=== PATIENT | female | born 1990 | race Caucasian/White ===

== ENCOUNTER 2016-03-24 17:07 | Emergency (ER) ==
[2016-03-24 17:51] VITALS: BP 125/75
--- NOTE | 2016-03-24 18:05 | PROVIDER DOCUMENTATION ---
HPI-General Adult <Lanny Lopez Krista - Last Filed: 03/24/16 20:33> - General Source: patient - History of Present Illness -Gen Adult Nature of Presenting Problems: 26 year old F presents to the ED with a cc of cough and congestion x1 week. Pt states that she has had a fever at the beginning but has since resolve. PT is but does not know how far along. Location of Pain/Injury: reports: none Pain Radiation: reports: no radiation Quality of Pain: reports: none Severity: reports: mild Onset/Duration: reports: 1 week ago Timing: reports: still present Modifying Factors: improves with: nothing Associated Symptoms: reports: cough, sinus congestion/drainage Similar Symptoms Previously?: No Recently seen or treated by another doctor?: No <Ngoc Strong - Last Filed: 03/24/16 20:43> - General Chief Complaint: Cold Symptoms Stated Complaint: COLD SX/?? WEEKS PREG Time Seen by Provider: 03/24/16 18:00 Allergies/Adverse Reactions: Patient Allergies Allergy/AdvReac Type Severity Reaction Status Date / Time No Known Allergies Allergy Verified 03/24/16 17:51 Review of Systems - Adult - REVIEW OF SYSTEMS - ADULT Constitutional: denies: chills, fever Eyes: reports: no symptoms reported Ears, Nose, Mouth & Throat: reports: sinus problem. denies: ear pain, throat pain Cardiovascular: denies: chest pain, palpitations Respiratory: reports: cough. denies: shortness of breath Gastrointestinal: denies: abdominal pain, nausea, vomiting Genitourinary: reports: no symptoms reported Musculoskeletal: reports: no symptoms reported Integumentary: reports: no symptoms reported Neurological: reports: no symptoms reported Psychiatric: reports: no symptoms reported Endocrine: reports: no symptoms reported Hematologic/Lymphatic: reports: no symptoms reported Allergic/Immunologic: reports: no symptoms reported All Other Systems: Reviewed and Negative <Ngoc Strong - Last Filed: 03/24/16 20:43> Past History - Adult - PAST MEDICAL HISTORY-ADULT Review of Records: reports: Nursing Assessment Review, Medications Reviewed Major Childhood Illnesses: reports: denies history Other Conditions: reports: denies history - PRIOR SURGERIES/PROCEDURES Surgical/Procedure History: reports: none - IMMUNIZATION STATUS Childhood Immunizations: See Nurse Assessment Flu Vaccine: See Nurse Assessment - SOCIAL HISTORY Smoking: non-smoker Substance Use: none/never Alcohol Use Frequency: never <Ngoc Strong - Last Filed: 03/24/16 20:43> Physical Exam-General - PHYSICAL EXAM-ADULT Initial Vital Signs Reviewed: Yes - CONSTITUTIONAL General Appearance: appears well, alert, no apparent distress - EYES Eyes: PERRL/EOMI, pink conjunctivae - HEAD, EARS, NOSE, MOUTH & THROAT HENMT: normocephalic/atraumatic, moist mucous membranes, TMs normal, pharyngeal erythema (with post-nasal drainage). negative: angioedema - NECK Neck: non-tender, full range of motion, supple. negative: lymphadenopathy - RESPIRATORY Respiratory: chest non-tender, lungs clear, normal breath sounds - CARDIOVASCULAR Cardiovascular: regular rate, rhythm, no edema - GASTROINTESTINAL (ABDOMEN) Abdominal Exam: non tender, other (fundus palpated above umbilicus) - MUSCULOSKELETAL Back Exam: normal inspection, no CVA tenderness, no vertebral tenderness Extremity: normal gait, normal inspection - SKIN Integumentary: normal color, normal turgor, warm/dry - NEUROLOGIC Neurologic: grossly normal, no motor/sensory deficits - PSYCHIATRIC Psych/Mental Status: normal thought content, normal thought process <Lanny Lopez - Last Filed: 03/24/16 20:33> - PHYSICAL EXAM-ADULT Initial Vital Signs Reviewed: Yes - CONSTITUTIONAL General Appearance: appears well, alert, no apparent distress - RESPIRATORY Respiratory: chest non-tender, lungs clear, normal breath sounds - CARDIOVASCULAR Cardiovascular: normal peripheral pulses, regular rate, rhythm, no edema - GASTROINTESTINAL (ABDOMEN) Abdominal Exam: non tender, soft - MUSCULOSKELETAL Extremity: normal inspection - SKIN Integumentary: normal color, normal turgor, warm/dry - PSYCHIATRIC Psych/Mental Status: normal mood/affect, normal thought content, normal thought process, oriented x 3 <Ngoc Strong - Last Filed: 03/24/16 20:43> Progress - PLAN OF CARE/RESULTS Progress/Plan/Lab Results: Vital Signs Temp Pulse Resp BP Pulse Ox 03/24/16 17:49 97.6 F 101 H 18 125/75 96 No Known Allergies Allergy (Verified 03/24/16 17:51) No Home Medications 03/24/16 Orders Category Date Time Status Heart Tones NOW Care 03/24/16 17:55 Active On recommendation of OB nurse ordered OB US as pt has had no OB care for this . Estimates about 20 wk . Has abdominal pain, could be due to coughing but will further evaluate cause of abd pain. <Lanny Lopez - Last Filed: 03/24/16 20:33> - PLAN OF CARE/RESULTS Progress/Plan/Lab Results: plan of care: heart tones Orders Category Date Time Status Heart Tones NOW Care 03/24/16 17:55 Active Vital Signs - 24 hr 03/24/16 17:49 Temperature 97.6 F Pulse Rate 101 H Respiratory 18 Rate Blood Pressure 125/75 O2 Sat by Pulse 96 Oximetry Pt given results and will be d/c home w/ rx to follow up with PCP. Pt verbally understood instructions. PT remained clinically stable throughout the course of the ED stay and will return if symptoms worsen. - ULTRASOUND (By Radiology) 1 US Study: Transvaginal Impression: Normal (FHR: 153 bpm, BPM: 18 weeks 0 days, EDVIN: August 25, 2016. Live IUP, Cervix closed. No complications identified.) <Ngoc Strong - Last Filed: 03/24/16 20:43> Departure - Departure Time of Disposition Order: 18:26 Certified Medical Emergency: Emergent <Lanny Lopez - Last Filed: 03/24/16 20:33> <Ngoc Strong - Last Filed: 03/24/16 20:43> - Departure DIAGNOSIS: Upper respiratory infection Qualifiers: URI type: unspecified URI Qualified Code(s): J06.9 - Acute upper respiratory infection, unspecified Disposition: HOME 01 Condition: Good Additional Instructions: Follow up with primary care doctor. Return to ED for any new or worsening symptoms. Establish care with a primary physician by calling the physician referral line below ED Follow Up Instructions: You have been treated by a care provider in the Emergency Department. These instructions are being provided to you so you can have an understanding of how to care for yourself upon discharge. Upon discharge from the Emergency Department, you are responsible for making arrangements for follow-up care by a physician of your choice. Take all prescribed medications as directed. Return to the Emergency Department immediately for any new or worsening symptoms. You may call the Physician Referral phone number at [phone] to obtain a list of Physicians who are taking new patients. Prescriptions: Amoxicillin 500 mg PO TID #21 tablet Guaifenesin/Dextromethorphan [Guaifenesin Dm Syrup] 10 ml PO BID #120 ml Referrals: None,PCP [Primary Care Provider] - Forms: Return to School/Parent Work Instructions: Amoxicillin capsules or tablets, Upper Respiratory Infection, Adult, Dextromethorphan; Guaifenesin oral solution Attestation - Physician/ Mid-level Attestation Patient care was provided by Mid-level provider (DURABLE MEDICAL EQUIPMENT TECHNICIAN/PA):: Yes Mid-level provider:: Lanny Lopez Mid-level documentation review:: The Mid-level provider documentation, treatment plan and medical decision making was reviewed by the physician who agrees with all treatment and medical decision making by the [facility]. <Lanny Lopez - Last Filed: 03/24/16 20:33> - Scribe Verification/Attestation Scribe:: Ngoc Strong Acting as Scribe for:: Lanny Lopez Scribe documention review:: This chart was documented by a scribe and accurately reflects the service the provider performed and the decisions made by the provider. <Ngoc Strong - Last Filed: 03/24/16 20:43> Physician Attestation - Physician Attestation I, the provider, attest to the following statement:: Lanny Lopez Physician documentation Attestation:: This documentation recorded by the scribe accurately reflects the service I personally performed and the decisions made by me. <Ngoc Strong - Last Filed: 03/24/16 20:43>
--- NOTE | 2016-03-25 08:58 | Diag Imaging Result Document ---
PROCEDURE NAME: US OBS COMPLETE > 14 WKS - 03/24/2016 OBSTETRICAL ULTRASOUND GREATER THAN 14 WEEKS: INDICATION: Abdominal pain. No care. Spotting. Preliminary interpretation was given by the on-call radiologist. FINDINGS: A single viable intrauterine is identified, with a heart rate of 153 beats per minute, maternal age of 18 weeks 0 days, and an estimated due date of August 25, 2016. The cervix is closed. Presentation is breech. Placenta is posterior. Four-chamber heart, three- vessel cord, bladder, kidneys, stomach, and spine are noted and unremarkable. IMPRESSION: Single viable intrauterine with an estimated gestational age of 18 weeks 0 days. No complications are appreciated.
== END 2016-03-24 20:51 | disposition home or self-care (01) ==
LOC: P.ED 17:07
DX: O26.892 Other specified pregnancy related conditions, second trimester (principal); J06.9 Acute upper respiratory infection, unspecified; R05 Cough; R09.81 Nasal congestion; R10.9 Unspecified abdominal pain; Z3A.18 18 weeks gestation of pregnancy
CPT/HCPCS: 76805

== ENCOUNTER 2016-08-18 05:38 | Inpatient (IN) ==
[2016-08-18] MEDS ORDERED: KEFZOL 1 GM/D5W 1 GM/50 ML IVPB IV PRN (05:44)
[2016-08-18] MEDS: LR 1,000 ML IV SCH ×2 (06:10→07:40)
[2016-08-18] MEDS ORDERED: SODIUM CHLORIDE 0.9% INJ ONE (06:15)
[2016-08-18] MEDS ORDERED: PEPCID IV ONE (06:15)
[2016-08-18] MEDS ORDERED: BICITRA PO ONE (06:15)
[2016-08-18 06:36] LABS: MANUAL DIFF NEEDED? NO
[2016-08-18 06:38] LABS: BASO% 0.3 % (0.0-0.8); EOS# 0.12 X1000 (0.0-0.7); EOS% 0.8 % (0.0-10.0); HEMATOCRIT 31.3 % (37.0-47.0); IMM GRAN# 0.05 X1000 (0.0-0.04); IMM GRAN% 0.3 % (0.0-0.5); LYMPH# 2.83 X1000 (1.2-3.4); LYMPH% 19.6 % (20.5-51.1); MCH 25.8 PG (27-31); MCHC 31.9 g/dL (33-37); MCV 80.9 FL (81-99); MONO# 1.18 X1000 (0.11-0.59); MONO% 8.2 % (1.7-9.3); MPV 11.4 FL (7.4-10.4); NEUT% 70.8 % (42.2-75.2); PLT 321 X1000 (130-400); RBC 3.87 XMIL (4.2-5.4)
[2016-08-18] MEDS ORDERED: ROBINUL ONE (07:36)
[2016-08-18] MEDS ORDERED: PITOCIN ONE (07:36)
[2016-08-18] MEDS ORDERED: ZOFRAN ONE (07:36)
[2016-08-18] MEDS ORDERED: TORADOL ONE (07:36)
[2016-08-18] MEDS ORDERED: DURAMORPH ONE (07:37)
[2016-08-18] MEDS ORDERED: EPHEDRINE ONE (07:37)
[2016-08-18 08:03] LABS: URINE SOURCE VOIDED
--- NOTE | 2016-08-18 08:09 | HISTORY AND PHYSICAL ---
PREDELIVERY DIAGNOSES: 1. Intrauterine at term. 2. Previous delivery, for repeat. 3. Late care. 4. Undesired fertility. 5. GBS negative. HISTORY OF PRESENT ILLNESS: Ms. Lewis is a 33-year-old, 2, para 1, with an estimated date of delivery of 08/25/2016 and the above diagnoses, who presents this morning for a repeat delivery and tubal ligation. She states she is feeling well. She has denied contractions, vaginal bleeding, leaking of fluid, headaches, visual changes, chest pain, or shortness of breath. She states she has good movement. PAST MEDICAL HISTORY: Negative. PAST SURGICAL HISTORY: Tonsillectomy and a delivery for failure to progress. ALLERGIES: She has no known drug allergies. MEDICATIONS: vitamins, iron, and Zofran. FAMILY HISTORY: Noncontributory. SOCIAL HISTORY: She denies tobacco, alcohol, or drug use. PHYSICAL EXAMINATION: VITAL SIGNS: Vital signs are stable. She is afebrile. GENERAL: She is alert and cooperative, no distress. NECK: Supple. LUNGS: Clear. HEART: Regular sinus rhythm. ABDOMEN: Gravid. PELVIC: Examination deferred. EXTREMITIES: There is +2 lower extremity edema. LABORATORY VALUES: Hepatitis B negative. Rubella immune. Rh positive blood type. HIV negative. RPR nonreactive. She passed her 1 hour oral glucose tolerance test. ASSESSMENT: As above. PLAN: Repeat delivery with tubal ligation. cc: Rex Del Rio MD
[2016-08-18 08:10] LABS: BILIRUBIN URINE NEGATIVE (NEGATIVE); BLOOD URINE NEGATIVE (NEGATIVE); CLARITY CLEAR (CLEAR); COLOR YELLOW; GLUCOSE URINE NEGATIVE (NEGATIVE); LEUKOCYTES URINE 2+ (NEGATIVE); NITRITE URINE NEGATIVE (NEGATIVE); PH URINE 6.5; PROTEIN URINE TRACE mg/dL (NEGATIVE); SP GRAVITY URINE 1.015; UROBILINOGEN URINE NORMAL
[2016-08-18 08:15] LABS: UR AMPHETAMINES QUAL NONE DETECTED (NONE DETECT); UR BARBITUATES QUAL NONE DETECTED (NONE DETECT); UR BENZODIAZEPIN QUAL NONE DETECTED (NONE DETECT); UR CANNABINOIDS QUAL NONE DETECTED (NONE DETECT); UR COCAINE QUAL NONE DETECTED (NONE DETECT); UR MDMA QUAL NONE DETECTED (NONE DETECT); UR METHADONE QUAL NONE DETECTED (NONE DETECT); UR METHAMPHETAMINE QUAL NONE DETECTED (NONE DETECT); UR OPIATES QUAL NONE DETECTED (NONE DETECT); UR OXYCODONE QUAL NONE DETECTED (NONE DETECT); UR PCP QUAL NONE DETECTED (NONE DETECT); UR TCA QUAL NONE DETECTED (NONE DETECT)
[2016-08-18] MEDS ORDERED: VERSED ONE (08:58)
[2016-08-18] MEDS ORDERED: PITOCIN 20 UNITS/LR 20 UNITS/1,000 ML IV.SOLN ONE (09:07)
[2016-08-18] MEDS ORDERED: NEO-SYNEPHRINE ONE (09:07)
[2016-08-18] MEDS ORDERED: ZOFRAN IV PRN ×4 (10:01→15:58)
[2016-08-18] MEDS ORDERED: ZOFRAN ODT PO PRN ×2 (10:01→15:57)
[2016-08-18] MEDS ORDERED: BENADRYL IV PRN ×2 (10:01→15:58)
[2016-08-18] MEDS ORDERED: NARCAN INJ PRN ×2 (10:01→15:57)
[2016-08-18] MEDS: MORPHINE IV PRN ×4 (10:17→20:13)
[2016-08-18] MEDS ORDERED: DULCOLAX PR PRN (11:37)
[2016-08-18] MEDS ORDERED: MYLICON PO PRN (11:37)
[2016-08-18] MEDS ORDERED: PERCOCET-5 PO PRN (11:37)
[2016-08-18] MEDS ORDERED: BOOSTRIX VACCINE IM ONE (11:37)
[2016-08-18] MEDS ORDERED: PITOCIN IM PRN (11:37)
[2016-08-18] MEDS ORDERED: M-M-R II VACCINE SUBQ ONE (11:37)
[2016-08-18] MEDS ORDERED: HYDROXYZINE IM PRN (11:37)
[2016-08-18] MEDS ORDERED: AMBIEN PO PRN (11:37)
[2016-08-18] MEDS ORDERED: CYTOTEC PO PRN (11:37)
[2016-08-18] MEDS ORDERED: DEMEROL PO PRN ×2 (11:37)
[2016-08-18] MEDS ORDERED: HYDROXYZINE PO PRN (11:37)
[2016-08-18] MEDS ORDERED: PHENERGAN IM PRN (11:37)
[2016-08-18] MEDS ORDERED: PITOCIN 20 UNITS/LR 20 UNITS/1,000 ML IV.SOLN IV ONE (11:37)
[2016-08-18] MEDS ORDERED: DEMEROL IM PRN (11:37)
--- NOTE | 2016-08-18 12:06 | OPERATIVE NOTE ---
PROCEDURE DATE: 08/18/2016 PREOPERATIVE DIAGNOSES: 1. Intrauterine at term. 2. Previous delivery for repeat. 3. Late care. 4. Undesired fertility. POSTOPERATIVE DIAGNOSES: 1. Intrauterine at term. 2. Previous delivery for repeat. 3. Late care. 4. Undesired fertility. 5. Nuchal cord x1. PROCEDURE: Low transverse section. SURGEON: Rex Del Rio MD ANESTHESIA: Spinal with Dr. Omer. FINDINGS: Viable female . ESTIMATED BLOOD LOSS: 500 mL, none replaced. DRAINS: Artis catheter. DESCRIPTION OF PROCEDURE: Please refer to Ms. Lewis's records and H and P. She was admitted this morning. Questions were answered. She was brought to the operating room where she was placed under spinal anesthetic. She was then placed supine on the table. A Artis catheter was inserted. She was prepped and draped. Adequate anesthesia was verified to the T10 level. A Pfannenstiel skin incision was made across the old scar through the subcuticular tissue to the fascia. The fascia was cut was extended laterally with curved Miller's. The muscle was pulled to the side. Peritoneum was entered bluntly. Bladder blade was placed. Hysterotomy incision was made in the lower uterine segment in the midline then extended by pulling cephalad and caudad. Membranes ruptured clear. Infant delivered occiput anterior and then shoulders delivered after nuchal cord x1 was reduced. Once baby was delivered, the cord was doubly clamped and cut and care of infant taken over by nursery personnel. Cord blood was obtained. A 3 vessel cord was noted. The uterus was massaged to deliver the placenta, which delivered intact. The uterus was then exteriorized, and wiped free of clots and remaining placental tissue. The hysterotomy incision was closed in a single layer with 0 Polysorb running and locking with good results. Attention then turned to the tubal. The right tubal fimbria were elevated up and the fimbriated end was tied off with 2-0 plain gut. Then the fimbria were cut and removed. This was repeated on patient's left side. Once this was done, the uterus was put back into the abdomen. Irrigation was done. There was just some mild bit of bleeding from the middle part of the incision and a vertical mattress suture was placed with good results. After this was done, the bladder was allowed to fall into place. The tubal pedicles were noted to be hemostatic. The peritoneum was reapproximated with 0 chromic. Muscle plicated in the midline with same 0 chromic. Fascia reapproximated with 0 Polysorb first with interrupted stitches, then a running nonlocking stitch. Subcutaneous tissue was irrigated and made hemostatic by electrocautery. Noe's fascia was closed with 3-0 chromic. Skin was closed with 4-0 Biosyn in a subcuticular stitch. All counts were correct. The patient was taken to her room to recover. cc: Rex Del Rio MD
[2016-08-18] MEDS: TORADOL IV SCH ×2 (14:54→20:13)
[2016-08-18] MEDS: MYLICON PO SCH ×2 (14:54→20:13)
[2016-08-18] MEDS: PITOCIN 10 UNITS/LR 10 UNIT/1,000 ML IV.SOLN IV SCH ×2 (15:51→23:25)
[2016-08-18] MEDS: PERICOLACE PO SCH (20:13)
[2016-08-19] MEDS: MORPHINE IV PRN (01:14)
[2016-08-19] MEDS: TORADOL IV SCH (02:30)
[2016-08-19 06:13] LABS: MANUAL DIFF NEEDED? NO
[2016-08-19 06:17] LABS: BASO% 0.5 % (0.0-0.8); EOS# 0.27 X1000 (0.0-0.7); EOS% 2.3 % (0.0-10.0); HEMATOCRIT 29.7 % (37.0-47.0); HEMOGLOBIN 9.3 g/dL (12.0-16.0); IMM GRAN# 0.03 X1000 (0.0-0.04); IMM GRAN% 0.3 % (0.0-0.5); LYMPH# 2.09 X1000 (1.2-3.4); LYMPH% 18.1 % (20.5-51.1); MCH 25.8 PG (27-31); MCHC 31.3 g/dL (33-37); MCV 82.3 FL (81-99); MONO% 7.8 % (1.7-9.3); MPV 11.4 FL (7.4-10.4); PLT 265 X1000 (130-400); RBC 3.61 XMIL (4.2-5.4)
[2016-08-19] MEDS: PERCOCET-10 PO PRN ×5 (06:22→23:06)
[2016-08-19] MEDS: MOTRIN PO PRN ×3 (09:20→23:05)
[2016-08-19] MEDS: MYLICON PO SCH ×4 (09:20→20:54)
[2016-08-19] MEDS: HEMOCYTE PLUS CAPSULE PO SCH (09:20)
[2016-08-19] MEDS: PRECARE PO SCH (09:20)
[2016-08-19] MEDS ORDERED: LR 1,000 ML IV SCH (11:24)
[2016-08-19] MEDS: PERICOLACE PO SCH (20:54)
[2016-08-20] MEDS: MOTRIN PO PRN (08:44)
[2016-08-20] MEDS: MYLICON PO SCH (08:44)
[2016-08-20] MEDS: PERCOCET-10 PO PRN (08:44)
[2016-08-20] MEDS: PRECARE PO SCH (08:44)
[2016-08-20] MEDS: HEMOCYTE PLUS CAPSULE PO SCH (08:44)
[2016-08-20 12:40] VITALS: BP 129/63
--- NOTE | 2016-08-20 15:49 | DISCHARGE SUMMARY ---
ADMISSION DATE: 08/18/2016 DISCHARGE DATE: 08/20/2016 ADMITTING DIAGNOSES: 1. Intrauterine at term. 2. Prior , desires repeat. 3. Desires sterility. HISTORY OF PRESENT ILLNESS: Patient is a 33-year-old, G2, P1, with intrauterine at 39 weeks with prior . Patient admitted and subsequently underwent a repeat delivery with bilateral tubal ligation. Please see full operative report for details. Postoperatively, patient was transferred to the floor for routine postop care. On postop day #1, Artis catheter was discontinued. Patient demonstrated the ability to void. Hematocrit returned 29.7, and on postop day #2 patient was tolerating a regular diet, ambulating without difficulty and felt to be stable for discharge home. DISCHARGE DISPOSITION: The patient is discharged home. PRIMARY PROCEDURE: Repeat section with bilateral tubal ligation. Patient to follow up in 1 week for postop visit. cc: MD Rex Real MD
== END 2016-08-20 14:20 | disposition home or self-care (01) ==
LOC: P.LD 05:38 → P.WC 19:53
PROVIDERS: ADMIT Obstetrics & Gynecology; ATTEND Obstetrics & Gynecology